=== PATIENT | female | born 1955 | race Caucasian/White ===

== ENCOUNTER → 2017-06-03 14:39 | Outpatient (CLI) | payer MEDICAID | END | disposition home or self-care (01) | LOC: D.LABREF 14:39 | DX: R50.9 Fever, unspecified (principal); J11.1 Influenza due to unidentified influenza virus with other respiratory manifestations ==

== ENCOUNTER → 2017-07-23 13:21 | Outpatient (CLI) | payer MEDICAID ==
[2017-07-23 15:32] LABS: BASOPHILS 0.5 % (0-2); EOSINOPHILS 4.3 % (0-7); HEMATOCRIT 42.2 % (36.0-48.0); HEMOGLOBIN 14.5 g/dL (12-16); IMMATURE GRANULOCYTES 0.2 % (0-5); LYMPHOCYTES 35.7 % (15-50); MCHC 34.4 g/dL (31.0-37.0); MCV 90.4 fL (80.0-100.0); MEAN PLATELET VOLUME 10.8 fL (7.4-10.4); MONOCYTES 5.8 % (2-11); NEUTROPHILS 53.5 % (40-80); PLATELET COUNT 214 10x3/uL (130-400); RBC 4.67 10x6/uL (4.00-5.40); RDW 13.9 % (11.5-14.5); WBC 8.4 10x3/uL (4.8-10.8)
[2017-07-26 10:19] LABS: ANGIOTENSIN CONVERTING ENZYME 18 U/L (14-82)
[2017-07-27 12:13] LABS: FUNGAL - ASP FLAVUS Negative (Neg:<1:1); FUNGAL - ASP NIGER Negative (Neg:<1:1); FUNGAL - ASPER FUMIGATUS Negative (Neg:<1:1)
[2017-07-29 12:12] LABS: IMMUNOGLOBULIN E 10 IU/mL (0-100)
== END | disposition home or self-care (01) ==
LOC: D.RT 13:21
PROVIDERS: Internal Medicine Pulmonary Disease
DX: J44.9 Chronic obstructive pulmonary disease, unspecified (principal)

== ENCOUNTER → 2018-07-15 09:00 | Outpatient (CLI) | payer MEDICAID | END | disposition home or self-care (01) | LOC: D.RT 09:00 | DX: J45.909 Unspecified asthma, uncomplicated (principal); R91.8 Other nonspecific abnormal finding of lung field ==

== ENCOUNTER 2018-08-28 05:44 | Outpatient (CLI) | payer MEDICAID ==
[~2018-08-28] VITALS: Ht 165.1 cm; Wt 73.6 kg
[2018-08-28 06:05] LABS: BASOPHILS 0.6 % (0-2); IMMATURE GRANULOCYTES 0.1 % (0-5); LYMPHOCYTES 28.9 % (15-50); MCHC 33.3 g/dL (31.0-37.0); MCV 89.9 fL (80.0-100.0); MEAN PLATELET VOLUME 10.4 fL (7.4-10.4); MONOCYTES 5.7 % (2-11); NEUTROPHILS 60.7 % (40-80); PLATELET COUNT 232 10x3/uL (130-400); RBC 4.34 10x6/uL (4.00-5.40); RDW 14.3 % (11.5-14.5); WBC 8.7 10x3/uL (4.8-10.8)
[2018-08-28 06:11] LABS: APTT 27.8 SECONDS (22.8-39.4); INR 0.92 (0.85-1.17); PROTIME 11.9 SECONDS (11.6-15.0)
[2018-08-28 06:20] LABS: ANION GAP 13.1 mmol/L (8-16); CALCIUM 8.6 mg/dL (8.5-10.1); CARBON DIOXIDE 25.2 mmol/L (21.0-32.0); CREATININE - SERUM 1.4 mg/dL (0.6-1.3); POTASSIUM - SERUM 4.3 mmol/L (3.5-5.1)
[2018-08-28] MEDS ORDERED: TUMS X-STR300 MG PO (07:18)
[2018-08-28] MEDS ORDERED: ZOCOR40 MG PO (07:19)
[2018-08-28] MEDS ORDERED: SYNTHROID112 MCG PO (07:19)
[2018-08-28] MEDS ORDERED: GABAPENTIN100 MG PO (07:20)
[2018-08-28] MEDS ORDERED: RANITIDINE HCL150 M1 PO (07:21)
[2018-08-28] MEDS ORDERED: ADALAT CC90 MG PO (07:22)
[2018-08-28] MEDS ORDERED: COZAAR100 MG PO (07:22)
[2018-08-28] MEDS ORDERED: PLAVIX75 MG PO (07:23)
[2018-08-28] MEDS ORDERED: LEXAPRO10 MG (07:24)
[2018-08-28] MEDS ORDERED: REQUIP1 MG PO (07:25)
[2018-08-28] MEDS ORDERED: BEVESPI (07:27)
[2018-08-28 07:46] VITALS: Ht 165.1 cm; Wt 73.6 kg
--- NOTE | 2018-08-28 13:32 | NUR ---
1200 PCXR COMPLETED AT BEDSIDE 1310 CXR GOOD. PT IS ALLOWED TO EAT NOW. 1320 PT TOLERATING FULL LIQUID DIET. 1325 DC'D IV. HELD PRESSURE UNTIL BLEEDING STOPPED. BANDAID APPLIED TO IV SITE. 1332 PT VOIDED WITHOUT DIFFICULTY.
--- NOTE | 2018-08-28 15:54 | NUR ---
1015 VS RECORDED ON POST PROCEDURE CHECKLIST
--- NOTE | 2018-08-28 15:55 | NUR ---
1330 PT TOLERATED FULL LIQUID DIET. CHEERFUL AND READY TO GO HOME. NO COMPLAINTS OF PAIN OR SOB.
== END 2018-08-28 13:40 | disposition home or self-care (01) ==
LOC: D.SP 05:44 → D.CT 08:00 → D.SP 08:00
PROVIDERS: Radiology Vascular & Interventional Radiology; ATTEND Internal Medicine Pulmonary Disease
DX: R91.1 Solitary pulmonary nodule (principal); Z01.812 Encounter for preprocedural laboratory examination

== ENCOUNTER → 2018-09-15 13:40 | Outpatient (CLI) | payer OTHER ==
[2018-08-28 07:46] VITALS: BMI 27.0
[~2018-09-15 13:40] MED LIST: ADALAT CC90 MG PO; BEVESPI; COZAAR100 MG PO; GABAPENTIN100 MG PO; LEXAPRO10 MG; PLAVIX75 MG PO; RANITIDINE HCL150 M1 PO; REQUIP1 MG PO; SYNTHROID112 MCG PO; TUMS X-STR300 MG PO; ZOCOR40 MG PO
== END | disposition home or self-care (01) ==
LOC: D.MRI 13:40
PROVIDERS: ATTEND Internal Medicine Pulmonary Disease
DX: C34.90 Malignant neoplasm of unspecified part of unspecified bronchus or lung (principal)